=== PATIENT | male | born 1965 | race Caucasian/White ===

== ENCOUNTER → 2017-08-31 08:29 | Outpatient (CLI) | payer BC, SELFPAY ==
[2017-08-31 12:11] LABS: Color, Urine Yellow (Yellow); Glucose, Dipstick Normal (Normal); Ketone-Dipstick Negative (Negative); Leukocyte Esterase-Dipstick Negative /ul (Negative); Nitrite-Dipstick Negative (Negative); Occult Blood-Urine Negative /ul (Negative); Protein-Dipstick Negative (Negative); Specific Gravity, Urine 1.005 (1.002-1.030); Urine Bilirubin Dipstick Negative (Negative); Urine Clarity Clear (Clear); Urine Urobilinogen Normal (Normal)
[2017-08-31 12:16] LABS: Absolute Lymphocyte Count 2.55 X10^3/ul (0.83-4.51); Absolute Neutrophil Count 7.9 X10^3/uL (2.0-7.7); Basophil# 0.02 X10^3/uL; Basophil% 0.2 % (0-1); Eosinophil# 0.12 X10^3/uL; Hematocrit 47.6 % (40-54); Hemoglobin 15.4 g/dl (13.0-16.5); Lymphocyte # 2.55 X10^3/ul (4.0); Mean Corp Hgb Conc 32.4 g/gl (32-36); Mean Corpuscular Hgb 30.9 pg (27.0-32.0); Mean Corpuscular Volume 95.4 fL (80-94); Mean Platelet Vol. 10.7 fl (6.2-12.0); Monocyte# 1.02 X10^3/uL; Monocyte% 8.8 % (0-10); Neutrophil # 7.87 X10^3/uL (2.7-7.7); Neutrophil % 67.7 % (47-70); Platelet Count 238 K/mm3 (150-450); RBC Distribution Width CV 12.8 % (11.6-14.6); RBC Distribution Width SD 43.9 fl (35.1-43.9); Red Blood Count 4.99 M/mm3 (4.6-6.2); White Blood Count 11.6 K/mm3 (4.4-11.0)
[2017-08-31 12:20] LABS: POSITIVE COUNT NO; POSITIVE DIFFERENTIAL NO; POSITIVE MORPHOLOGY NO
[2017-08-31 12:38] LABS: ALB/GLOB Ratio 0.9 RATIO (0.9-2.4); AST(SGOT) 17 U/L (15-37); Alanine Aminotransfer ALT/SGPT 24 U/L (16-61); Albumin, Serum 3.7 g/dL (3.2-5.0); Alkaline Phosphatase 80 U/L (45-117); Anion Gap 9 (5-15); BUN 15 mg/dL (7-18); BUN/Creat Ratio 13.6 RATIO (10-20); Calcium,Total 8.7 mg/dL (8.5-10.1); Chloride 101 mmol/L (98-107); Cholesterol 144 mg/dL (200); EST Glomerular Filtration Rate 74 mL/min (>60); Est Glom Filt Rate - Afr Amer 90 mL/min (>60); Globulin 3.9 g/dL (2.2-4.2); Glucose 90 mg/dL (74-106); High Density Lipoprotein 57 mg/dL; Phosphorus 2.5 mg/dL (2.5-4.9); Protein, Total 7.6 g/dL (6.4-8.2); Sodium Level 137 mmol/L (136-145); Triglycerides 49 mg/dL; Very Low Density Lipoprotein 10 mg/dL (5-40)
== END ==
PROVIDERS: Family Provider Family Medicine; PCP Family Medicine; Visit Provider Family Medicine
DX: Z00.00 Encounter for general adult medical examination without abnormal findings (principal); I10 Essential (primary) hypertension; B20 Human immunodeficiency virus [HIV] disease; Z51.81 Encounter for therapeutic drug level monitoring
CPT/HCPCS: 36415; 80053; 80061; 81002; 84100; 85025

== ENCOUNTER → 2018-09-10 | Outpatient (CLI) | payer BC, SELFPAY ==
[2018-09-10 16:05] LABS: Bacteria 0 SEEN /hpf (None Seen); Mucous, Urine 0 SEEN /hpf (<or=2+); Red Blood Cells-Urine 0 SEEN /hpf (0-5); Squamous Epithelial Cells - UA 0 SEEN /hpf (0-5); White Blood Cells 0 SEEN /hpf (0-5)
[2018-09-10 17:13] LABS: Absolute Lymphocyte Count 2.58 X10^3/ul (0.83-4.51); Absolute Neutrophil Count 3.7 X10^3/uL (2.0-7.7); Basophil# 0.02 X10^3/uL; Basophil% 0.3 % (0-1); Eosinophils% 2.8 % (0-5); Hematocrit 44.5 % (40-54); Lymphocyte # 2.58 X10^3/ul (4.0); Lymphocyte % 36.6 % (19-41); Mean Corp Hgb Conc 33.7 g/gl (32-36); Mean Corpuscular Hgb 30.3 pg (27.0-32.0); Mean Corpuscular Volume 89.9 fL (80-94); Mean Platelet Vol. 10.7 fl (6.2-12.0); Monocyte# 0.52 X10^3/uL; Monocyte% 7.4 % (0-10); Neutrophil # 3.69 X10^3/uL (2.7-7.7); Neutrophil % 52.3 % (47-70); POSITIVE COUNT NO; POSITIVE DIFFERENTIAL NO; POSITIVE MORPHOLOGY NO; Platelet Count 223 K/mm3 (150-450); RBC Distribution Width CV 12.8 % (11.6-14.6); RBC Distribution Width SD 41.9 fl (35.1-43.9); Red Blood Count 4.95 M/mm3 (4.6-6.2); White Blood Count 7.1 K/mm3 (4.4-11.0)
[2018-09-10 17:18] LABS: Color, Urine Yellow (Yellow); Glucose, Dipstick Normal (Normal); Ketone-Dipstick 15 mg/dl (Negative); Leukocyte Esterase-Dipstick Negative /ul (Negative); Nitrite-Dipstick Negative (Negative); Occult Blood-Urine Negative /ul (Negative); Protein-Dipstick Negative (Negative); Specific Gravity, Urine 1.015 (1.002-1.030); Urine Bilirubin Dipstick Negative (Negative); Urine Clarity Clear (Clear); Urine Urobilinogen Normal (Normal)
[2018-09-10 17:31] LABS: ALB/GLOB Ratio 1.1 RATIO (0.9-2.4); AST(SGOT) 27 U/L (15-37); Alanine Aminotransfer ALT/SGPT 31 U/L (16-61); Albumin, Serum 3.9 g/dL (3.2-5.0); Alkaline Phosphatase 70 U/L (45-117); Anion Gap 8 (5-15); BUN 18 mg/dL (7-18); BUN/Creat Ratio 15.7 RATIO (10-20); Calcium,Total 8.9 mg/dL (8.5-10.1); Chloride 104 mmol/L (98-107); Cholesterol 175 mg/dL (200); Creatinine, Serum 1.15 mg/dL (0.70-1.30); EST Glomerular Filtration Rate 70 mL/min (>60); Est Glom Filt Rate - Afr Amer 85 mL/min (>60); Globulin 3.4 g/dL (2.2-4.2); Glucose 72 mg/dL (74-106); High Density Lipoprotein 51 mg/dL; PSA,Total - Annual Screen 0.76 ng/mL (0.00-4.00); Phosphorus 3.5 mg/dL (2.5-4.9); Potassium 3.7 mmol/L (3.5-5.1); Protein, Total 7.3 g/dL (6.4-8.2); Sodium Level 140 mmol/L (136-145); Triglycerides 59 mg/dL; Very Low Density Lipoprotein 12 mg/dL (5-40)
[2018-09-12 17:16] LABS: Absolute CD4 Helper 626 /uL (359-1519); Basophils (Absolute) 0 x10E3/uL (0.0-0.2); Eosinophils 3 % (Not Estab.); Eosinophils (Absolute) 0.2 x10E3/uL (0.0-0.4); Hemoglobin 14.4 g/dL (13.0-17.7); Immature Granulocytes 0 % (Not Estab.); Lymphs 38 % (Not Estab.); Lymphs (Absolute) 2.7 x10E3/uL (0.7-3.1); MCH 30.5 pg (26.6-33.0); MCHC 32.7 g/dL (31.5-35.7); MCV 93 fL (79-97); Monocytes 5 % (Not Estab.); Monocytes (Absolute) 0.4 x10E3/uL (0.1-0.9); Neutrophils 54 % (Not Estab.); Neutrophils (Absolute) 3.8 x10E3/uL (1.4-7.0); Percent % CD4 Pos. Lymph. 23.2 % (30.8-58.5); Platelets 252 x10E3/uL (150-450); RBC Count 4.72 x10E6/uL (4.14-5.80); RDW 13.5 % (12.3-15.4); WBC Count 7.2 x10E3/uL (3.4-10.8)
[2018-09-13 18:09] LABS: HIV-1 RNA by PCR, Quant. < 20 copies/mL (.)
[2018-09-16 12:52] LABS: Immature Granulocytes Absolute 0 x10E3/uL (0.0-0.1)
== END | disposition home or self-care (01) ==
LOC: BFHLAB 16:03
PROVIDERS: Family Provider Family Medicine; PCP Family Medicine; Visit Provider Family Medicine
DX: Z00.00 Encounter for general adult medical examination without abnormal findings (principal); I10 Essential (primary) hypertension; B20 Human immunodeficiency virus [HIV] disease; Z51.81 Encounter for therapeutic drug level monitoring; Z12.5 Encounter for screening for malignant neoplasm of prostate
CPT/HCPCS: 36415; 80053; 80061; 81001; 84100; 84153; 85025; 86361; 87536; G0103

== ENCOUNTER 2018-09-27 17:47 | Emergency (ER) | payer BC, SELFPAY ==
[2018-09-27 17:48] VITALS: BP 127/80; PULSE 99; RESP 18; TEMP 37.2; O2SAT 98; BMI 29.7
--- NOTE | 2018-09-27 18:14 | ED.DCSUM_ITS ---
- ER Visit Summary Date of Service: 09/27/18 Chief Complaint: Nose laceration History of Present Illness: The patient is a 53 M who presents with a laceration to his nose. It happened about an hour ago. He was kicked in the face by a horse. No LOC. He denies any significant pain but he does have some oozing from a laceration to the bridge of his nose. His tetanus is up-to-date. He denies any blurry vision or double vision. No epistaxis noted. Physical Examination: Vital signs reviewed. HEENT exam shows an L-shaped laceration to the right side of the top of the nose. No epistaxis. His nose is actually not tender. There is no septal hematoma. Laceration is 1.5 cm in L- shaped on the right bridge of the nose. Oozing of blood noted. His GCS is 15. Test Results: None performed Emergency Department Course and Treatment: The patient's GCS is 15. He has a nasal laceration but there is no deviation of the nose. I do not feel any imaging is needed at this time. Laceration was repaired with 2, 5-0 nylon sutures. He will have these out in 5 to 7 days by his primary care physician. Treatment Plan: [] Disposition: Discharge Impression: Nasal laceration, 1.5 cm Laceration repair by ED physician This note was generated with [employer] dictation software. It may contain incorrect words, spelling, and punctuation that were not noted in review of the chart prior to signing ED Disposition - Plan for ED Patient: Referrals: Quang Penaloza DO [Primary Care Provider] -
--- NOTE | 2018-09-27 18:31 | ED.DEP ---
ED Disposition - Plan for ED Patient: Disposition: Home or Assisted Living Instructions: LACERATION, All Referrals: Quang Penaloza DO [Primary Care Provider] -
== END 2018-09-27 19:03 | disposition home or self-care (01) ==
PROVIDERS: Emergency Provider Emergency Medicine; Family Provider Family Medicine; PCP Family Medicine
DX: S01.21XA Laceration without foreign body of nose, initial encounter (principal); I10 Essential (primary) hypertension; E78.00 Pure hypercholesterolemia, unspecified; Z79.899 Other long term (current) drug therapy; W55.12XA Struck by horse, initial encounter; Y93.89 Activity, other specified; Y92.89 Other specified places as the place of occurrence of the external cause; Y99.8 Other external cause status
CPT/HCPCS: 12011; 99283

== ENCOUNTER → 2019-12-15 | Outpatient (CLI) | payer BC, SELFPAY ==
[2019-12-15 10:36] LABS: Bacteria 0 SEEN /hpf (None Seen); Mucous, Urine 0 SEEN /hpf (<or=2+); Red Blood Cells-Urine 0 SEEN /hpf (0-5); Squamous Epithelial Cells - UA 0 SEEN /hpf (0-5); White Blood Cells 0 SEEN /hpf (0-5)
[2019-12-15 12:51] LABS: Color, Urine Yellow (Yellow); Glucose, Dipstick Normal (Normal); Ketone-Dipstick Negative (Negative); Leukocyte Esterase-Dipstick Negative /ul (Negative); Nitrite-Dipstick Negative (Negative); Occult Blood-Urine Negative /ul (Negative); Protein-Dipstick Negative (Negative); Specific Gravity, Urine 1.015 (1.002-1.030); Urine Bilirubin Dipstick Negative (Negative); Urine Clarity Clear (Clear); Urine Urobilinogen Normal (Normal)
[2019-12-15 12:52] LABS: Absolute Lymphocyte Count 2.89 X10^3/uL (0.83-4.51); Absolute Neutrophil Count 3.3 X10^3/uL (2.0-7.7); Basophil# 0.03 X10^3/uL; Basophil% 0.4 % (0-1); Eosinophil# 0.24 X10^3/uL; Eosinophils% 3.5 % (0-5); Hematocrit 46.9 % (40-54); Hemoglobin 15.3 g/dL (13.0-16.5); Lymphocyte # 2.89 X10^3/ul (4.0); Lymphocyte % 41.9 % (19-41); Mean Corp Hgb Conc 32.6 g/dL (32-36); Mean Corpuscular Hgb 30.6 pg (27.0-32.0); Mean Corpuscular Volume 93.8 fL (80-94); Mean Platelet Vol. 10.4 fl (6.2-12.0); Monocyte# 0.44 X10^3/uL; Monocyte% 6.4 % (0-10); NRBC Flagged by Analyzer 0 % (0-5); Neutrophil # 3.27 X10^3/uL (2.7-7.7); Neutrophil % 47.4 % (47-70); Platelet Count 283 K/mm3 (150-450); RBC Distribution Width CV 12.6 % (11.6-14.6); RBC Distribution Width SD 43.1 fl (35.1-43.9); White Blood Count 6.9 K/mm3 (4.4-11.0)
[2019-12-15 13:14] LABS: ALB/GLOB Ratio 1.1 RATIO (0.9-2.4); AST(SGOT) 20 U/L (15-37); Alanine Aminotransfer ALT/SGPT 24 U/L (16-61); Albumin, Serum 3.7 g/dL (3.2-5.0); Alkaline Phosphatase 67 U/L (45-117); Anion Gap 6 (5-15); BUN 14 mg/dL (7-18); BUN/Creat Ratio 13.6 RATIO (10-20); Calcium,Total 8.6 mg/dL (8.5-10.1); Chloride 105 mmol/L (98-107); Cholesterol 143 mg/dL (200); Creatinine, Serum 1.03 mg/dL (0.70-1.30); EST Glomerular Filtration Rate 79 mL/min (>60); Est Glom Filt Rate - Afr Amer 96 mL/min (>60); Globulin 3.5 g/dL (2.2-4.2); Glucose 66 mg/dL (74-106); High Density Lipoprotein 45 mg/dL; PSA,Total - Annual Screen 0.65 ng/mL (0.00-4.00); Phosphorus 2.2 mg/dL (2.5-4.9); Potassium 3.9 mmol/L (3.5-5.1); Protein, Total 7.2 g/dL (6.4-8.2); Sodium Level 139 mmol/L (136-145); Triglycerides 74 mg/dL; Very Low Density Lipoprotein 15 mg/dL (5-40)
[2019-12-16 16:08] LABS: Absolute CD4 Helper 551 /uL (359-1519); Basophils (Absolute) 0 x10E3/uL (0.0-0.2); Eosinophils 4 % (Not Estab.); Eosinophils (Absolute) 0.2 x10E3/uL (0.0-0.4); Hematocrit 45.3 % (37.5-51.0); Hemoglobin 15.5 g/dL (13.0-17.7); Immature Granulocytes 1 % (Not Estab.); Lymphs 40 % (Not Estab.); Lymphs (Absolute) 2.6 x10E3/uL (0.7-3.1); MCH 31.4 pg (26.6-33.0); MCHC 34.2 g/dL (31.5-35.7); MCV 92 fL (79-97); Monocytes 7 % (Not Estab.); Monocytes (Absolute) 0.4 x10E3/uL (0.1-0.9); Neutrophils 47 % (Not Estab.); Neutrophils (Absolute) 3.2 x10E3/uL (1.4-7.0); Percent % CD4 Pos. Lymph. 21.2 % (30.8-58.5); Platelets 274 x10E3/uL (150-450); RBC Count 4.93 x10E6/uL (4.14-5.80); RDW 12.5 % (11.6-15.4); WBC Count 6.5 x10E3/uL (3.4-10.8)
[2019-12-17 04:19] LABS: Immature Granulocytes Absolute 0 x10E3/uL (0.0-0.1)
[2019-12-17 04:39] LABS: HIV-1 RNA by PCR, Quant. < 20 copies/mL (.)
== END | disposition home or self-care (01) ==
LOC: BFHLAB 10:35
PROVIDERS: PCP Family Medicine; Visit Provider Family Medicine
DX: Z00.00 Encounter for general adult medical examination without abnormal findings (principal); B20 Human immunodeficiency virus [HIV] disease; I10 Essential (primary) hypertension; Z12.5 Encounter for screening for malignant neoplasm of prostate
CPT/HCPCS: 36415; 80053; 80061; 81001; 84100; 84153; 85025; 86361; 87536; G0103

== ENCOUNTER → 2019-12-19 | Outpatient (CLI) | payer BC, SELFPAY ==
--- NOTE | 2019-12-19 15:08 | RAD_ITS ---
STUDY: X-RAY - RIGHT FOOT CLINICAL: Male, 54 years old. bilateral foot pain, all over TECHNIQUE: 3 view(s) of the foot. COMPARISON: None. FINDINGS: Normal talus, calcaneus, and tarsal bones. Normal visualized subtalar, talonavicular, calcaneocuboid, tarsal and tarsometatarsal articulations. Normal metatarsi. Normal metatarsophalangeal joint of the great toe. Normal tibial and fibular sesamoid bones. Normal interphalangeal joint of the great toe. Normal phalanges of the great toe. Normal second through fifth metatarsophalangeal joints. Normal interphalangeal joints and phalanges of the lesser toes. The soft tissue structures are unremarkable. RAD/Foot min 3 Views IMPRESSION: Normal x-ray examination of the foot. Electronically Signed: Filiberto Lora MD ([facility]) at 8:58 EDT , Service support ,
--- NOTE | 2019-12-19 15:08 | RAD_ITS ---
STUDY: X-RAY - LEFT FOOT CLINICAL: Male, 54 years old. bilateral foot pain, all over TECHNIQUE: 3 view(s) of the foot. COMPARISON: None. FINDINGS: There is a plantar calcaneal spur. Normal visualized subtalar, talonavicular, calcaneocuboid, tarsal and tarsometatarsal articulations. Normal metatarsi. Normal metatarsophalangeal joint of the great toe. Normal tibial and fibular sesamoid bones. Normal interphalangeal joint of the great toe. Normal phalanges of the great toe. Normal second through fifth metatarsophalangeal joints. Normal interphalangeal joints and phalanges of the lesser toes. The soft tissue structures are unremarkable. RAD/Foot min 3 Views IMPRESSION: Small calcaneal spur. Electronically Signed: Filiberto Lora MD ([facility]) at 8:58 EDT , Service support ,
== END | disposition home or self-care (01) ==
LOC: MTRAD 15:06
PROVIDERS: PCP Family Medicine; Referring Provider Family Medicine; Visit Provider Family Medicine
DX: M79.671 Pain in right foot (principal); M79.672 Pain in left foot
CPT/HCPCS: 73630

== ENCOUNTER → 2020-12-27 09:58 | Outpatient (CLI) | payer BC, SELFPAY ==
--- NOTE | 2020-12-27 10:01 | RAD_ITS ---
STUDY: X-RAY - PELVIS AND LEFT HIP REASON FOR EXAM: Male, 55 years old. Pain. TECHNIQUE: 3 views of the pelvis and hip. COMPARISON: None. FINDINGS: There is a non-specific bowel gas pattern. Phleboliths. Normal bilateral iliac wings, sacroiliac joints and visualized sacrum. Normal bilateral superior and inferior pubic rami. Normal pubic symphysis. Normal bilateral ischial tuberosities. Moderate arthrosis of both hips. 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 Electronically Signed: Haseeb Caban MD at 13:53 EDT , Service support ,
== END ==
PROVIDERS: PCP Family Medicine; Referring Provider Family Medicine; Visit Provider Family Medicine
DX: M25.552 Pain in left hip (principal)
CPT/HCPCS: 73502